=== PATIENT | female | born 1955 | race Two or more races ===

== ENCOUNTER 2017-01-26 07:24 | Day surgery (SDC) | payer OTHER ==
[~2017-01-26] VITALS: Ht 152.4 cm; Wt 50.1 kg
[2017-01-26 07:55] VITALS: Ht 152.4 cm; Wt 50.1 kg
[2017-01-26 08:15] VITALS: BP 112/64; PULSE 74; RESP 18
[2017-01-26] MEDS ORDERED: LIDOCAINE 4% SOLUTION 50 ML BTL ONE (08:17)
[2017-01-26] MEDS ORDERED: FENTAnyl 50 MCG/ML VIAL ONE (09:27)
[2017-01-26] MEDS ORDERED: MIDAZOLAM 1 MG/ML 2 ML INJ ONE ×2 (09:27)
[2017-01-26 10:20] VITALS: BP 106/63; PULSE 59; RESP 19
--- NOTE | 2017-01-27 07:56 | GILP ---
DATE OF PROCEDURE: PROCEDURE PERFORMED: EGD with biopsy and colonoscopy. INDICATION: A 62-year-old female undergoing this procedure for colon cancer screening and EGD for e pigastric pain. INFORMED CONSENT: The risks of the procedure, related and unrelated complications, anesthetic risks and alternatives were discussed and informed consent was obtained. DESCRIPTION OF PROCEDURE: The patient was brought to the GI lab, sedated with 4 mg of Versed and 75 mg of fentanyl. After optimum sedation the scope was passed with much ease into the esophagus, whi ch was within normal limits. The Z line was at 35 cm. The stomach mucosa revealed gastritis and 3 AVMs. The largest was 1 cm, the others were 0.5 cm in diameter. The duodenum, first and second par ts, including the ampulla, appeared normal. Retroversion in the stomach also was normal. The scope was straightened out and removed, with good patient tolerance. IMPRESSION: 1. Normal esophagus. 2. Normal Z-line at 35 cm. 3. Gastritis. 4. Normal duodenum and ampulla. 5. Three AVMs identified. PLAN: At this point is to review the histopathology. COLONOSCOPY REPORT: She was turned around and the scope was passed with much ease into the rectum, advanced through the sigmoid, descending and transverse colon, all the way into the cecum. The appe ndiceal orifice was well identified. While coming out the mucosa was thoroughly inspected. The res t of the colon was normal. Clarity was good. Cleanliness was good. Retroversion was done. Small hemorrhoids were identified. The scope was straightened out and removed, with good patient toleranc e. IMPRESSION 1. Negative all the way into the cecum. 2. Hemorrhoids. 3. Clarity and cleanliness was good. PLAN: This finding cannot explain the abdominal pain and also we should look at the blood count. I f she is anemic, then she definitely needs APC coagulation of AVMs. Dictated By: ZOILA PORTILLO/RAMIRO Conf#: [id number] DID#: [id number]
== END 2017-01-26 12:00 | disposition home or self-care (01) ==
LOC: GIL 07:24
PROVIDERS: ATTEND Internal Medicine Gastroenterology
DX: Z12.11 Encounter for screening for malignant neoplasm of colon (principal); K29.50 Unspecified chronic gastritis without bleeding; K64.9 Unspecified hemorrhoids
CPT/HCPCS: 88305; 88312; J2250; J3010